=== PATIENT | female | born 1970 | race Two or more races ===

== ENCOUNTER 2016-03-19 19:19 | Emergency (ER) | payer BC ==
[2016-03-19 19:26] VITALS: PULSE 78; TEMP 98.2; BMI 31.2
[2016-03-19] MEDS ORDERED: DEXAMETHASONE SOD PHOSPHATE 4 MG/1 ML VIAL IVPUSH ONE (19:30)
[2016-03-19] MEDS ORDERED: SODIUM CHLORIDE 1,000 ML IV STA (19:30)
[2016-03-19] MEDS ORDERED: METOCLOPRAMIDE HCL INJECTION 10 MG/2 ML VIAL IVPB ONE (19:30)
--- NOTE | 2016-03-19 19:32 | PDOC ---
History of Present Illness - General History Source: Patient Exam Limitations: No Limitations <Tee Kaur - Last Filed: 03/19/16 20:29> - General History Source: Patient Exam Limitations: No Limitations - History of Present Illness Initial Comments: 03/19/16 19:51 The patient is a 46 year old female with a significant past medical history of migraines who presents to the Emergency Department with headache and lightheadedness today. She states that the headache has progressed and worsened throughout the day. She denies phonophobia or photophobia. She reports taking Tylenol with no relief. She reports associated neck pain, nausea, and chills. She denies sick contacts. She denies fever, vomiting, diarrhea. <Mray Riley - Last Filed: 03/19/16 20:32> - General Chief Complaint: Headache Stated Complaint: HEADACHE Time Seen by Provider: 03/19/16 19:30 Past History - Past Medical History Other medical history: MIGRAINE HEADACHES - Psycho/Social/Smoking Cessation Hx Anxiety: No Suicidal Ideation: No Smoking History: Never smoked Hx Alcohol Use: No Drug/Substance Use Hx: No <Tee Kaur - Last Filed: 03/19/16 20:29> <Mary Riley - Last Filed: 03/19/16 20:32> - Past Medical History Allergies/Adverse Reactions: Allergies Allergy/AdvReac Type Severity Reaction Status Date / Time No Known Allergies Allergy Verified 03/19/16 19:22 Home Medications: Ambulatory Orders Acetaminophen [Tylenol -] 1,000 mg PO Q6H PRN 03/19/16 Cyanocobalamin [Vitamin B12 -] mcg PO DAILY 03/19/16 Review of Systems - Review of Systems Able to Perform ROS?: Yes Constitutional: Yes: Chills ABD/GI: Yes: Nausea Musculoskeletal: Yes: Neck Pain Neurological: Yes: Headache, Dizziness <Mary Riley - Last Filed: 03/19/16 20:32> *Physical Exam - Vital Signs Last Vital Signs Temp Pulse Resp BP Pulse Ox 98.2 F 78 18 159/93 100 03/19/16 19:20 03/19/16 19:20 03/19/16 19:20 03/19/16 19:20 03/19/16 19:20 - Physical Exam General Appearance: Yes: Nourished, Appropriately Dressed. No: Apparent Distress HEENT: positive: EOMI, CANDIS. negative: Normal ENT Inspection Neck: positive: Supple. negative: Tender Respiratory/Chest: positive: Lungs Clear, Normal Breath Sounds. negative: Respiratory Distress Cardiovascular: positive: Regular Rhythm, Regular Rate Gastrointestinal/Abdominal: positive: Normal Bowel Sounds, Soft. negative: Tender Extremity: positive: Normal Capillary Refill, Normal Range of Motion Integumentary: positive: Normal Color Neurologic: positive: sap crm developer II-XII NML intact, Fully Oriented, Alert, Normal Mood/ Affect, Normal Response, Motor Strength 5/5 <Tee Kaur - Last Filed: 03/19/16 20:29> - Vital Signs Last Vital Signs Temp Pulse Resp BP Pulse Ox 98.2 F 78 18 159/93 100 03/19/16 19:20 03/19/16 19:20 03/19/16 19:20 03/19/16 19:20 03/19/16 19:20 <Mary Riley - Last Filed: 03/19/16 20:32> ED Treatment Course - Medications Given in the ED: ED Medications Discontinued Medications Generic Name Dose Route Start Last Admin Trade Name Freq PRN Reason Stop Dose Admin Metoclopramide HCl 10 mg 03/19/16 19:30 03/19/16 19:40 Reglan Injection - IVPB 03/19/16 19:31 10 mg ONCE ONE Administration <Mary Riley - Last Filed: 03/19/16 20:32> Progress Note - Progress Note Progress Note: likely migraine will treat and reassess 8:29 PM Feels better. no head ache unchanged neuro exam <Tee Kaur - Last Filed: 03/19/16 20:29> *DC/Admit/Observation/Transfer <Tee Kaur - Last Filed: 03/19/16 20:29> - Attestations Scribe Attestion: 03/19/16 19:52 Documentation prepared by Mary Riley, acting as medical technical writer for Tee Kaur MD. <Mary Riley - Last Filed: 03/19/16 20:32> Diagnosis at time of Disposition: Head ache Qualifiers: Headache type: unspecified Headache chronicity pattern: acute headache Intractability: not intractable Qualified Code(s): R51 - Headache - Discharge Dispostion Disposition: HOME Condition at time of disposition: Improved - Patient Instructions Additional Instructions: EXEDRIN MIGRAINE 2 TABS AT FIRST SIGN OF HEAD ACHE SEE YOUR DOCTOR THIS WEEK RETURN IF WORSENING OR NEW SYMPTOMS
[2016-03-19 21:11] VITALS: BP 128/79
== END 2016-03-19 21:12 | disposition home or self-care (01) ==
LOC: FER 19:19
PROC: 3E033GC Introduction of Other Therapeutic Substance into Peripheral Vein, Percutaneous Approach (ICD-10-PCS; principal; 2016-03-19)
PROC: 3E0337Z Introduction of Electrolytic and Water Balance Substance into Peripheral Vein, Percutaneous Approach (ICD-10-PCS; 2016-03-19)
DX: R51 Headache (principal)
CPT/HCPCS: 96361; 96374; 96375; 99284-25

== ENCOUNTER 2017-03-28 14:05 | Emergency (ER) | payer BC ==
[2017-03-28 14:10] VITALS: BP 165/102; PULSE 78; TEMP 99; BMI 30.6
--- NOTE | 2017-03-28 15:17 | PDOC ---
History of Present Illness - General History Source: Patient, Family Exam Limitations: No Limitations - History of Present Illness Initial Comments: 03/28/17 15:20 The patient is a 47 year old female with a past significant medical history of GERD (managed by omeprazole) who presents to the emergency department with progressively worsening constant epigastric pain radiating to the mid back associated with nausea since seven days ago. She describes her epigastric pain a 9 out of 10 in severity. She describes the pain as a burning sensation. She reports that eating exacerbates her epigastric pain. She reports decreased food and fluid intake. She reports mild alleviation with chamomile tea. She reports taking a dose of omeprazole yesterday. She also reports a few episodes of diarrhea since onset of epigastric pain (now resolved). She denies taking any over the counter medications for her symptoms. She denies experiencing similar symptoms in the past associated with GERD. She also reports mild dysuria. She denies any fever, chills, and vomiting. She denies any chest pain and shortness of breath. She denies any hematochezia. She also reports a history of frequent urinary tract infections. She reports frequent constipation which is typical for her. She reports a normal menstrual cycle. Her last normal menstrual period was last month (exact date unknown). <Jessica Marquez - Last Filed: 03/28/17 15:23> <Danilo Boyd - Last Filed: 03/28/17 18:08> - General Chief Complaint: Pain Stated Complaint: BACK, ABD PAIN Time Seen by Provider: 03/28/17 14:53 Past History <Jessica Marquez - Last Filed: 03/28/17 15:23> - Past Medical History COPD: No GI Disorders: Yes (GERD) - Suicide/Smoking/Psychosocial Hx Smoking History: Never smoked Have you smoked in the past 12 months: No Information on smoking cessation initiated: No Hx Alcohol Use: No Drug/Substance Use Hx: No <Danilo Boyd - Last Filed: 03/28/17 18:08> - Past Medical History Allergies/Adverse Reactions: Allergies Allergy/AdvReac Type Severity Reaction Status Date / Time No Known Allergies Allergy Verified 03/28/17 14:06 Home Medications: Ambulatory Orders Pantoprazole Sodium [Protonix] 40 mg PO DAILY #15 tablet. 03/28/17 Tramadol HCl 50 mg PO QID PRN #20 tablet MDD 4 03/28/17 Review of Systems - Review of Systems Able to Perform ROS?: Yes Comments:: 03/28/17 15:21 CONSTITUTIONAL: Absent: fever, no chills, no fatigue EYES: Absent: visual changes ENT: Absent: ear pain, no sore throat CARDIOVASCULAR: Absent: chest pain, no palpitations RESPIRATORY: Absent: cough, no SOB GI: Present: epigastric pain radiating to the mid back, nausea, and diarrhea (now resolved) Absent: no vomiting GENITOURINARY: Present: Dysuria Absent: no frequency, no hematuria MUSKULOSKELETAL: Present: See GI section (epigastric pain radiating to the mid back) Absent: no arthralgia, no myalgia SKIN: Absent: rash NEURO: Absent: headache All Other Systems: Reviewed and Negative <Jsesica Marquez - Last Filed: 03/28/17 15:23> *Physical Exam - Vital Signs Last Vital Signs Temp Pulse Resp BP Pulse Ox 99 F 78 18 165/102 100 03/28/17 14:05 03/28/17 14:05 03/28/17 14:05 03/28/17 14:05 03/28/17 14:05 - Physical Exam Comments: 03/28/17 15:21 GENERAL: Well developed, well nourished. Awake and alert. No acute distress. HEENT: Patient appears mildly pale but non-icteric. Normocephalic, atraumatic. PERRLA, EOMI. Sclera are non-icteric. Moist mucous membranes. Oropharynx is clear. NECK: Supple. Full ROM. No JVD. Carotid pulses 2+ and symmetric, without bruits. No thyromegaly. No lymphadenopathy. CARDIOVASCULAR: Regular rate and rhythm. No murmurs, rubs, or gallops. Distal pulses are 2+ and symmetric. PULMONARY: No evidence of respiratory distress. Lungs clear to auscultation bilaterally. No wheezing, rales or rhonchi. ABDOMINAL: Soft. Non-tender. Non-distended. No rebound or guarding. No organomegaly. Normoactive bowel sounds. MUSCULOSKELETAL Normal range of motion at all joints. No bony deformities or tenderness. No CVA tenderness. EXTREMITIES: No cyanosis. No clubbing. No edema. No calf tenderness. SKIN: Warm and dry. Normal capillary refill. No rashes. No jaundice. NEUROLOGICAL: Alert, awake, appropriate. Cranial nerves 2-12 intact. Normal speech. Gait is normal without ataxia. PSYCHIATRIC: Cooperative. Good eye contact. Appropriate mood and affect. <Jessica Marquez - Last Filed: 03/28/17 15:23> - Vital Signs Last Vital Signs Temp Pulse Resp BP Pulse Ox 99 F 78 18 165/102 100 03/28/17 14:05 03/28/17 14:05 03/28/17 14:05 03/28/17 14:05 03/28/17 14:05 <Danilo Boyd - Last Filed: 03/28/17 18:08> ED Treatment Course - LABORATORY CBC & Chemistry Diagram: 03/28/17 15:35 03/28/17 15:30 <Danilo Boyd - Last Filed: 03/28/17 18:08> Medical Decision Making - Medical Decision Making 03/28/17 18:07 CBC and chemistries including lipase without significant abnormalities. Abdominal examination is completely benign. Most likely diagnosis is acute gastroenteritis, or possibly early peptic ulcer disease Referred to booth cleaner for further evaluation. Change omeprazole to Protonix. Tramadol for pain. Return to ER if the pain is more severe, there is nausea vomiting or diarrhea, but there is melena or bloody stool. Patient is fully ambulatory, in no significant pain or other distress, and improved upon discharge to follow-up as recommended <Danilo Boyd - Last Filed: 03/28/17 18:08> *DC/Admit/Observation/Transfer - Attestations Scribe Attestion: 03/28/17 15:20 Documentation prepared by Jessica Marquez, acting as medical laboratory technician for Danilo Wetzel MD/. <Jessica Marquez - Last Filed: 03/28/17 15:23> - Discharge Dispostion Admit: No <Danilo Boyd - Last Filed: 03/28/17 18:08> Diagnosis at time of Disposition: Gastritis and gastroduodenitis - Discharge Dispostion Disposition: HOME Condition at time of disposition: Improved - Prescriptions Prescriptions: Pantoprazole Sodium [Protonix] 40 mg PO DAILY #15 tablet. Tramadol HCl 50 mg PO QID PRN #20 tablet MDD 4 PRN Reason: Severe Pain - Referrals Referrals: Christian Salazar MD [Staff Physician] - 1 week - Patient Instructions Printed Discharge Instructions: DI for Gastritis Additional Instructions: Medication as directed [place] diet Return to ER if pain becomes more severe or if there is vomiting or blood in the stool. Otherwise see booth cleaner for further evaluation and treatment as directed
[2017-03-28] MEDS ORDERED: PANTOPRAZOLE SODIUM 40 MG in SODIUM CHLORIDE 100 ML IVPB ONE (15:18)
[2017-03-28] MEDS ORDERED: MAG HYDROX/AL HYDROX/SIMETH 355 ML ORAL.SUSP PO ONE (15:19)
[2017-03-28] MEDS ORDERED: SODIUM CHLORIDE 1,000 ML IV STA (15:19)
[2017-03-28] MEDS ORDERED: PANTOPRAZOLE SODIUM 40 MG VIAL ONE (15:36)
[2017-03-28] MEDS ORDERED: MAG HYDROX/AL HYDROX/SIMETH 30 ML UNIT-DOSE CUP ONE (15:36)
[2017-03-28 15:54] LABS: PH,URINE 7.5 (4.5-8); URINE APPEARANCE Clear; URINE BILIRUBIN Negative (NEGATIVE); URINE BLOOD Negative (NEGATIVE); URINE GLUCOSE (UA) Negative (NEGATIVE); URINE KETONE Negative (NEGATIVE); URINE NITRITE Negative (NEGATIVE); URINE PROTEIN Negative (NEGATIVE); URINE UROBILINOGEN 0.2 (0.2-1.0)
[2017-03-28 15:55] LABS: URINE COLOR YELLOW; URINE LEUK ESTERASE 2+ (NEGATIVE)
[2017-03-28 15:57] LABS: BASO % 1.3 % (0-2.0); HEMATOCRIT 37.2 % (32.4-45.2); HEMOGLOBIN 12.3 GM/dl (10.7-15.3); LYMPH % 41.2 % (8-40); MEAN CELL VOLUME 81.8 fl (80-96); MEAN PLT VOLUME 8.4 fl (7.5-11.1); MONO % 8.8 % (3.8-10.2); NEUT % 46.7 % (42.8-82.8); PLATELET COUNT 292 K/MM3 (134-434); RBC 4.54 M/mm3 (3.60-5.2); RDW 15.5 % (11.6-15.6); WHITE BLOOD COUNT 4.5 K/mm3 (4.0-10.8)
[2017-03-28 16:27] LABS: ALBUMIN 4.2 g/dl (3.5-5.0); ALK PHOS 49 U/L (32-92); ANION GAP 5 (8-16); BILIRUBIN,TOTAL 0.4 mg/dl (0.2-1.0); BLOOD UREA NITROGEN 7 mg/dl (7-18); CALCIUM 9.2 mg/dl (8.4-10.2); CHLORIDE 105 mmol/L (98-107); CO2 25 mmol/L (22-28); CREATININE 0.6 mg/dl (0.6-1.3); GLUCOSE,RANDOM 92 mg/dl (74-106); POTASSIUM 4.2 mmol/L (3.5-5.1); SGOT/AST 25 U/L (10-42); SGPT/ALT 16 U/L (10-40); SODIUM 135 mmol/L (136-145); TOT PROT 7.6 g/dl (6.4-8.3)
[2017-03-28 17:34] LABS: EPI CELLS FEW /HPF; URINE BACTERIA FEW /hpf (NEGATIVE); URINE RBC 0-2 /hpf (0-3)
--- NOTE | 2017-03-31 13:58 | EKG ---
Test Reason : Blood Pressure : / mmHG Vent. Rate : 066 BPM Atrial Rate : 066 BPM P-R Int : 174 ms QRS Dur : 084 ms QT Int : 394 ms P-R-T Axes : 038 017 020 degrees QTc Int : 413 ms NORMAL SINUS RHYTHM NORMAL ECG NO PREVIOUS ECGS AVAILABLE Confirmed by JASBIR HOLLAND MD ([id number] on 03/31/2017 1:58:10 PM Referred By: MD CHESTER Confirmed By:JASBIR HOLLAND MD
== END 2017-03-28 18:10 | disposition home or self-care (01) ==
LOC: FER 14:05
PROC: 3E033GC Introduction of Other Therapeutic Substance into Peripheral Vein, Percutaneous Approach (ICD-10-PCS; principal; 2017-03-28)
PROC: 3E0337Z Introduction of Electrolytic and Water Balance Substance into Peripheral Vein, Percutaneous Approach (ICD-10-PCS; 2017-03-28)
DX: K29.70 Gastritis, unspecified, without bleeding (principal); K29.90 Gastroduodenitis, unspecified, without bleeding
CPT/HCPCS: 36415; 80053; 81003; 81015; 82550; 83690; 84484; 85025; 87086; 93005; 96361; 96365; 99285-25

== ENCOUNTER 2017-04-29 08:02 | Emergency (ER) | payer BC ==
[2017-04-29 08:06] VITALS: BP 145/97; PULSE 84; TEMP 98; BMI 32.9
--- NOTE | 2017-04-29 09:35 | PDOC ---
History of Present Illness - General Chief Complaint: Pain, Acute Stated Complaint: LEFT KNEE PAIN Time Seen by Provider: 04/29/17 08:30 History Source: Patient (Patient walked in , with the help of her daughter after a fall in the shower room last nite, stretching her left knee.) Exam Limitations: No Limitations - History of Present Illness Occurred: reports: yesterday Severity: Yes: moderate Method of Injury: Yes: twisted Modifying Factors: improves with: None Extremity Pain Location - Extremity Pain Location Extremity Pain Locations: bilateral: knee Past History - Travel Traveled outside of the country in the last 30 days: No Close contact w/someone who was outside of country & ill: No - Past Medical History Allergies/Adverse Reactions: Allergies Allergy/AdvReac Type Severity Reaction Status Date / Time No Known Allergies Allergy Verified 04/29/17 08:03 Home Medications: Ambulatory Orders NK [No Known Home Medication] 04/29/17 COPD: No GI Disorders: Yes (GERD) Other medical history: obesity - Suicide/Smoking/Psychosocial Hx Smoking History: Never smoked Have you smoked in the past 12 months: No Hx Alcohol Use: No Drug/Substance Use Hx: No Substance Use Type: None Review of Systems - Review of Systems Able to Perform ROS?: Yes Is the patient limited Portuguese proficient: Yes Constitutional: No: Symptoms Reported, See HPI, Chills, Diaphoresis, Fever, Loss of Appetite, Malaise, Night Sweats, Weakness, Weight Stable, Unintentional Wgt. Loss, Unexplained wgt Loss, Other HEENTM: No: Symptoms Reported, See HPI, Eye Pain, Blurred Vision, Tearing, Recent change in vision, Double Vision, Cataracts, Ear Pain, Ocular Prothesis, Ear Discharge, Nose Pain, Nose Congestion, Tinnitus, Nose Bleeding, Hearing Loss , Throat Pain, Throat Swelling, Mouth Pain, Dental Problems, Difficulty Swallowing, Mouth Swelling, Other Respiratory: No: Symptoms reported, See HPI, Cough, Orthopnea, Shortness of Breath, SOB with Exertion, SOB at Rest, Stridor, Wheezing, Productive cough, Hemoptysis, Other Cardiac (ROS): No: Symptoms Reported, See HPI, Chest Pain, Edema, Irregular Heart Rate, Lightheadedness, Palpitations, Syncope, Chest Tightness, Other ABD/GI: No: Symptoms Reported, See HPI, Abdominal Distended, Abd. Pain w/ defecation, Blood Streaked Bowels, Constipated, Diarrhea, Difficulty Swallowing , Nausea, Poor Appetite, Poor Fluid Intake, Rectal Bleeding, Vomiting, Indigestion, Abdominal cramping, Tarry Stools, Other Musculoskeletal: Yes: See HPI, Joint Pain, Joint Swelling Neurological: No: Symptoms reported, See HPI, Headache, Numbness, Paresthesia, Pre-Existing Deficit, Seizure, Tingling, Tremors, Weakness, Unsteady Gait, Ataxia, Dizziness, Other All Other Systems: Reviewed and Negative *Physical Exam - Vital Signs Last Vital Signs Temp Pulse Resp BP Pulse Ox 98 F 84 16 145/97 99 04/29/17 08:02 04/29/17 08:02 04/29/17 08:02 04/29/17 08:02 04/29/17 08:02 - Physical Exam General Appearance: Yes: Nourished, Appropriately Dressed, Obese HEENT: positive: CANDIS Neck: positive: Supple Respiratory/Chest: positive: Lungs Clear Cardiovascular: positive: S1, S2 Extremity: positive: Normal Capillary Refill, Tender (Tenderness on both knees, mainly on the medial and lateral aspects), Pedal Edema, Swelling Integumentary: positive: Normal Color, Dry, Warm Neurologic: positive: Fully Oriented, Alert ED Treatment Course - ADDITIONAL ORDERS Additional order review: Laboratory Results 04/29/17 08:16 Urine HCG, Qual Negative - RADIOLOGY Radiology Studies Ordered: Category Date Time Status KNEE 3 POS-LEFT [RAD] Stat Radiology 04/29/17 08:28 Taken *DC/Admit/Observation/Transfer Diagnosis at time of Disposition: Left knee sprain Qualifiers: Encounter type: initial encounter Involved ligament of knee: other ligament Qualified Code(s): S83.8X2A - Sprain of other specified parts of left knee, initial encounter - Discharge Dispostion Disposition: HOME Condition at time of disposition: Stable Admit: No - Referrals Referrals: Jus Arroyo MD [Staff Physician] - - Patient Instructions Printed Discharge Instructions: DI for Knee Sprain Additional Instructions: Elevation, Ice on and off Advil gelcaps TID with food - Post Discharge Activity
[2017-04-29] MEDS ORDERED: IBUPROFEN 600 MG TABLET (FP) PO ONE ×2 (09:51→09:55)
== END 2017-04-29 11:00 | disposition home or self-care (01) ==
LOC: FER 08:02
DX: S83.8X2A Sprain of other specified parts of left knee, initial encounter (principal); X58.XXXA Exposure to other specified factors, initial encounter; Y93.89 Activity, other specified; Y92.9 Unspecified place or not applicable; K21.9 Gastro-esophageal reflux disease without esophagitis
CPT/HCPCS: 73562-TC-LT-FY; 84703; 99283-25